=== PATIENT | male | born 1970 | race Caucasian/White ===

== ENCOUNTER 2017-04-08 16:50 | Emergency (ER) | payer OTHER ==
[2017-04-08 16:57] VITALS: BP 128/68
--- NOTE | 2017-04-08 18:05 | UC ---
Laceration HPI - HPI Summary HPI Summary: laceration to right wrist while cleaning refridg. at 1630 - History Of Current Complaint Chief Complaint: UCLaceration Stated Complaint: WRIST INJURY Time Seen by Provider: 04/08/17 18:04 Hx Obtained From: Patient Laceration Location: Wrist Mechanism Of Injury: Sharp Trauma Onset/Duration: Sudden Onset Severity: Mild Aggravating Factors: Nothing Related History: Dominant Hand Right - Allergies/Home Medications Allergies/Adverse Reactions: Allergies Allergy/AdvReac Type Severity Reaction Status Date / Time CATS Allergy Severe ASTHMA Uncoded 04/08/17 16:57 PMH/Surg Hx/FS Hx/Imm Hx Previously Healthy: No GI/ History: Gastroesophageal Reflux - Surgical History Surgical History: None - Family History Known Family History: Positive: None - Social History Occupation: Employed Full-time Lives: With Family Alcohol Use: Occasionally Substance Use Type: None Smoking Status (MU): Never Smoked Tobacco - Immunization History Hx Tetanus, Diphtheria Vaccination: Yes Vaccination Up to Date: Yes Review of Systems Constitutional: Negative Skin: Other - superfical 3 cm laceration horizontal at right wrist, minimal oozing Eyes: Negative ENT: Negative Respiratory: Negative Cardiovascular: Negative Gastrointestinal: Negative Genitourinary: Negative Motor: Negative Neurovascular: Negative Musculoskeletal: Negative Neurological: Negative Psychological: Negative All Other Systems Reviewed And Are Negative: Yes Physical Exam Triage Information Reviewed: Yes Appearance: Well-Appearing, No Pain Distress, Well-Nourished Vital Signs: Initial Vital Signs Temp 97.8 F 04/08/17 16:54 Pulse 75 04/08/17 16:54 Resp 12 04/08/17 16:54 BP 128/68 04/08/17 16:54 Pulse Ox 98 04/08/17 16:54 Vital Signs Reviewed: Yes Eye Exam: Normal Eyes: Positive: Conjunctiva Clear ENT Exam: Normal ENT: Positive: Normal ENT inspection, Hearing grossly normal, TMs normal. Negative: Nasal congestion, Nasal drainage, Trismus, Muffled/hoarse voice Dental Exam: Normal Neck exam: Normal Neck: Positive: Supple, Nontender, No Lymphadenopathy Respiratory Exam: Normal Respiratory: Positive: Chest non-tender, No respiratory distress, No accessory muscle use Cardiovascular Exam: Normal Cardiovascular: Positive: RRR, Pulses Normal, Brisk Capillary Refill Musculoskeletal Exam: Normal Musculoskeletal: Positive: Strength Intact, ROM Intact, No Edema Neurological Exam: Normal Neurological: Positive: Alert, Muscle Tone Normal Psychological Exam: Normal Skin: Positive: Other - 3 cm superfical laceration to right wrist with minimal oozing Laceration Repair - Laceration Repair 1 Description: Linear Laceration Size After Repair: Length (cm) - 3, Width (mm) - 2, Depth (mm) - 2 Modified For Repair: No Cleansing Completed Via Routine Prep: Yes Irrigation With Pressure Irrigation Device: Yes Closure Material: Skin Adhesive, SteriStrips Re-Evaluation - Re-Evaluation First Eval Change: Improved - wound well approximated no bleeding, n/m/c intact before and after repair Laceration Course/Dx - Course/Dx Course Of Treatment: skin glue care-dressing splint for 2-3 days follow with pcp prn - Differential Dx - Laceration/Wound Differental Diagnoses: Laceration, Puncture Wound, Tendon Laceration Provider Diagnoses: Laceration right wrist glue repaired Discharge - Discharge Plan Condition: Stable Disposition: HOME Patient Education Materials: Diphtheria/Acellular Pertussis/Tetanus Booster Vaccine (By injection), Skin Adhesive Care (ED), Steristrips (ED) Referrals: [facility] [place] [facility] [place]Outside] - If Needed
[2017-04-08] MEDS ORDERED: Tetan/Diph/Pertus SYR(Tdap)* 0.5 ML SYR(BOOSTRIX) use SYR IM ONE (18:10)
[2017-04-08] MEDS ORDERED: Benzoin COMPOUND swab* 1 applicator pak TOPICAL ONE (18:10)
[2017-04-08] MEDS ORDERED: Benzoin Compound STICK TOPICAL ONE (18:18)
== END 2017-04-08 18:45 | disposition home or self-care (01) ==
LOC: UCEAST 16:50
DX: S61.511A Laceration without foreign body of right wrist, initial encounter (principal); W45.8XXA Other foreign body or object entering through skin, initial encounter; Y93.E9 Activity, other interior property and clothing maintenance; Y92.9 Unspecified place or not applicable; Z23 Encounter for immunization; K21.9 Gastro-esophageal reflux disease without esophagitis
CPT/HCPCS: 12002; 90471; 90715; 96372; 99202; G0463